=== PATIENT | male | born 1995 | race African-American/Black ===

== ENCOUNTER 2019-08-23 09:35 | Emergency (ER) | payer BC, OTHER | END 2019-08-23 10:30 | disposition home or self-care (01) | LOC: ERS 09:35 | DX: S29.011A Strain of muscle and tendon of front wall of thorax, initial encounter (principal); F41.9 Anxiety disorder, unspecified; Z20.828 Contact with and (suspected) exposure to other viral communicable diseases; Z79.899 Other long term (current) drug therapy; X50.0XXA Overexertion from strenuous movement or load, initial encounter | CPT/HCPCS: 87635; 99283; U0003 ==